=== PATIENT | male | born 1955 | race Caucasian/White ===

== ENCOUNTER 2025-08-03 18:08 | Observation (INO) | payer MEDICARE, OTHER, SELFPAY ==
--- NOTE | ~2025-08-03 | CT_ITS ---
CLINICAL HISTORY: Had TIA affecting speech Exam: Unenhanced CT brain, and contrast-enhanced CTA head and neck with multiplanar reformats and MIP reconstructions. Comparison: None. Findings: Nonenhanced CT brain: CT head without contrast Comparison: None Findings: No intracranial mass, midline shift, hydrocephalus, or acute hemorrhage. No CT evidence of acute ischemia. Visualized paranasal sinuses and mastoid air cells normal. Orbits unremarkable. No skull fracture. CTA head: There is good opacification of the bilateral anterior and posterior intracranial arterial circulations. Left vertebral dominance is present, anatomic variant. No large vessel occlusion or significant intracranial arterial stenoses. No definable truncation of flow. No evidence of aneurysm or vascular malformation there appears to be persistent circulation on the left, anatomic variant. No venous thrombosis or enhancing parenchymal lesions. CTA neck: Unremarkable aortic arch. There is calcific athero sclerosis of the left subclavian artery origin, without hemodynamically significant stenoses. Common carotid arteries are patent bilaterally. Dense calcific athero sclerosis of the mid left common carotid artery appears to result in up to 50% stenoses (for example, 10; 826). There is calcific athero sclerosis of the ICA origins bilaterally. No definable hemodynamically significant stenoses is present on the right. There appears to be stenoses of the proximal left internal carotid artery approaching 50-60% severity (for example, 10; 682). No tandem ICA stenoses appreciated. Vertebral arteries are patent bilaterally. Visualized pulmonary apices are clear. No neck masses or adenopathy. No destructive osseous lesions. Impression: 1. No acute intracranial abnormalities. 2. Calcific athero sclerosis of the mid left common carotid artery appears to result in up to 50% stenoses. 3. Calcific athero sclerosis at left ICA origin appears to result in up to 50-60% stenoses. 4. Otherwise, unremarkable CTA head and neck. This document has been electronically signed by: Geovany Arredondo MD on 08/03/2025 20:29:30
--- NOTE | ~2025-08-03 | MR_ITS ---
CLINICAL HISTORY: tia vs stroke Exam: Nonenhanced MRI brain. Comparison: CT brain 08/03/2025. Findings: There is no cerebral edema or mass effect. White matter signal intensities are maintained. Diffusion weighted imaging reveals no restricted diffusion or MR evidence of acute ischemia. Susceptibility weighted imaging reveals no susceptibility artifact or evidence of intracranial hemorrhage. No sellar or parasellar lesions. Ventricular size and configuration are within normal limits. Cerebral cisterns are preserved. No significant signal abnormality seen within the paranasal sinuses or mastoid air cells. Preserved flow signal voids are present within visualized intracranial vasculature. Impression: 1. No acute intracranial abnormalities. This document has been electronically signed by: Geovany Arredondo MD on 08/04/2025 19:03:21
--- NOTE | 2025-08-03 18:19 | ED.GENADULT ---
HPI - General Adult General Chief complaint: Stroke Stated complaint: ?TIA Time Seen by Provider: 08/03/25 18:19 History of Present Illness ED Provider: Elham HAYES narrative: The patient is a 70-year-old male with a history of atrial fibrillation on apixaban. He says that he was working with the computer today at around 14:00 when he started to feel like he was having trouble finding words. He says that he had a similar episode about 2 weeks ago. He did not seek medical care at that time. He says the episode 2 weeks ago did not last very long, less than 5 minutes.. Today's episode was fairly similar. The patient's was present during both of these episodes. She was not aware of any facial asymmetry or droop or any weakness in the extremities. The patient has otherwise been feeling fine. No fever, sweats, chills. No significant headache. No cough or sputum. No chest pain. No abdominal pain, nausea, vomiting. Related Data Allergies Allergy/AdvReac Type Severity Reaction Status Date / Time No Known Allergies Allergy Verified 08/03/25 18:32 Review of Systems Review of Systems: Yes all other systems are reviewed and are negative [facility] Social History Social History Use of substances other than those prescribed or required for medical reasons: No Advance Directives: No Advance Directives Information Provided: No Do you have a plan to hurt others: No Plan Physical Exam ED Vital Signs: Vital Signs - 24 hr 08/03/25 18:29 08/03/25 20:51 Temperature 97.6 F 97.7 F Pulse Rate 68 60 Respiratory Rate 18 19 Blood Pressure 158/72 H 142/64 H Pulse Oximetry 100 98 Oxygen Delivery Method Room Air Room Air BMI result Body Mass Index 21.0 Const Other: The patient is awake, alert, pleasant and cooperative. He did not appear in distress and he showed no signs of an obvious neurological deficit. HENMT Other: I felt the patient has a somewhat asymmetric face at baseline but I do not feel there was any definite facial droop on either side. Tongue is midline. Mucous membranes moist. Eyes Other: Pupils are round equal, conjunctivae are clear, extraocular movements intact Visual Garzon: normal visual garzon by confrontation Alignment and Position: alignment normal EOM: EOMs intact bilaterally Neck Neck: Yes normal visual inspection, Yes full ROM and Yes no JVD Resp Effort & Inspection: normal respiratory effort Auscultation: clear to auscultation bilaterally Cardio Rate: regular rate Rhythm: regular rhythm Heart sounds: S1 normal heart sound present and S2 normal heart sound present GI Other: Abdomen is soft and nontender Skin Other: The skin is dry and unremarkable Neuro Other: The patient is awake and alert with a normal mental status. Pupils are round equal, extraocular movements are intact, visual garzon are intact to confrontation, the patient is face has a certain asymmetry to it but I do not think there was any droop. The patient has intact strength in his extremities. No cerebellar findings. Sensation is intact. NIH stroke scale is 0. Extrem Other: There is no calf swelling or tenderness. No asymmetry. No peripheral edema. Medications Administered Discontinued Medications Generic Name Dose Route Start Last Admin Trade Name Freq PRN Reason Stop Dose Admin Sodium Chloride 1,000 mls @ 999 mls/hr 08/03/25 19:45 08/03/25 21:32 Ns IV 08/03/25 20:45 Infused .Q1H1M SAMANTHA Infusion Iohexol 100 ml 08/03/25 19:49 08/03/25 19:50 Iohexol 350 Mg/Ml 100 Ml Infus..Btl IV 08/03/25 19:50 70 ml ONCE ONE Administration Medical Decision Making Medical Decision Making MDM Narrative: The patient is a 70-year-old male who was on apixaban because of paroxysmal atrial fibrillation. He describes 2 episodes, 1 last week and another just before arrival, that sound like TIAs. These were characterized primarily by problems with speech. There does not seem to be has been any other deficits during these episodes. The episodes were brief, less than 5 minutes. He arrived by ambulance. I saw him on arrival. He had no ongoing deficits. An EKG shows sinus rhythm. Vital signs are stable. A CT angiogram of the head and neck shows no acute stroke. No critical findings on the vascular portion of the angiogram. Given that this patient has what seems to has been 2 TIAs while on anticoagulation and he has had these 2 episodes in the course of a week I think that hospitalization for further evaluation by neurology would be reasonable. Lab Data 08/03/25 18:52 08/03/25 18:51 Labs: Lab Results 08/03/25 08/03/25 08/03/25 Range/Units 18:51 18:52 20:03 WBC 5.3 (4.8-10.8) X10*3/uL RBC 4.03 L (4.60-5.80) X10*6/uL Hgb 13.1 L (14.0-18.0) g/dl Hct 36.9 L (42.0-52.0) % MCV 91.6 (80.0-98.0) fL MCH 32.5 (27.0-33.0) pg MCHC 35.5 (31.0-36.0) g/dl RDW 11.4 (11.0-16.0) % Plt Count 209 (160-400) X10*3/uL MPV 9.1 L (9.4-12.4) fL Immature Gran % (Auto) 0.4 (0.0-0.4) % Neut % (Auto) 59.4 (45-73) % Lymph % (Auto) 26.6 (20-40) % [place] % (Auto) 10.4 (2-11) % Eos % (Auto) 2.1 (0-4) % Baso % (Auto) 1.1 (0-2) % Lymph # (Auto) 1.4 (1.2-4.9) X10*3/uL [place] # (Auto) 0.6 (0.1-1.2) X10*3/uL Eos # (Auto) 0.1 (0.0-0.4) X10*3/uL Baso # (Auto) 0.1 (0.0-0.2) X10*3/uL Abs Immat Gran (auto) 0.02 (0.00-0.03) X10*3/uL Absolute Neuts (auto) 3.2 (2.0-8.3) x10*3/uL Absolute Nucleated RBC 0.000 (0.0-0.012) X10*3/uL Nucleated RBC % (auto) 0.0 (0.0-0.2) /100WBC Sodium 140 (135-145) mmol/L Potassium 4.3 (3.3-5.1) mmol/L Chloride 108 (96-108) mmol/L Carbon Dioxide 22 (22-29) mmol/L Anion Gap 14 (12-20) BUN 15 (9-16) mg/dL Creatinine 0.90 (0.5-1.4) mg/dL Estim Creat Clear Calc 62.7 Estimated GFR > 60 POC Glucose 81 (60-115) mg/dL Random Glucose 99 (60-115) mg/dL Calcium 9.4 (8.4-10.2) mg/dL Magnesium 2.0 (1.6-2.6) mg/dL Total Bilirubin 0.9 (0.0-1.0) mg/dL Direct Bilirubin 0.4 (0.0-0.5) mg/dL AST 28 (5-37) U/L ALT 25 (0-40) U/L Alkaline Phosphatase 56 (39-117) U/L NT-Pro-B Natriuret Pep 288.5 (<300) pg/mL Total Protein 7.1 (6.5-8.0) g/dL Albumin 4.7 (3.5-5.0) g/dL Discharge Plan Discharge Clinical Impression: Transient ischemic attack Patient Disposition: Home, Self-Care
--- NOTE | 2025-08-03 18:20 | ECG_ITS ---
Test Reason : TIA Blood Pressure : */* mmHG Vent. Rate : 68 BPM Atrial Rate : 68 BPM P-R Int : 154 ms QRS Dur : 88 ms QT Int : 410 ms P-R-T Axes : 7 -16 19 degrees QTcB Int : 435 ms Normal sinus rhythm Normal ECG No previous ECGs available Referred By: Jhoan Lizarraga Electronically Signed By: IRISH JACKSON
[2025-08-03 18:22] VITALS: BP 162/83; PULSE 68; O2SAT 99
[2025-08-03 18:29] VITALS: BP 158/72; PULSE 68; RESP 18; TEMP 36.4; O2SAT 100; BMI 21.0
[2025-08-03 18:57] LABS: MANUAL DIFF FLAG NO
[2025-08-03 18:59] LABS: Hematocrit 36.9 % (42.0-52.0); Hemoglobin 13.1 g/dl (14.0-18.0); Imm Gran Abs Auto 0.02 X10*3/uL (0.00-0.03); Imm Gran Pct Auto 0.4 % (0.0-0.4); Lymphocytes Absolute Auto 1.4 X10*3/uL (1.2-4.9); Mean Corpuscular HGB Conc 35.5 g/dl (31.0-36.0); Mean Corpuscular Hemoglobin 32.5 pg (27.0-33.0); Mean Corpuscular Volume 91.6 fL (80.0-98.0); NRBC Abs Auto 0.000 X10*3/uL (0.0-0.012); NRBC Pct Auto 0.0 /100WBC (0.0-0.2); Platelet Count 209 X10*3/uL (160-400); Red Blood Count 4.03 X10*6/uL (4.60-5.80); White Blood Count 5.3 X10*3/uL (4.8-10.8)
--- OUTSIDE RECORDS SUMMARY | 2025-08-03 19:15 | XMS_ITS | Clinical Summary ---
Author Organization [facility] Address [address] [place] [id number] Phone Care Team Providers Care Sociology Teacher Name Role Phone Fidel Wheatley MD Primary Care Provider + Social History Tobacco Use Types Packs/Day Years Used Date Smoking Tobacco: Never Assessed Education Answer Date Recorded Are you interested in more education? Not on curtis e 12/01/2022 Are you concerned about learning? Not on file 12/01/2022 No 12/01/2022 No 12/01/2022 Digital Access Answer Date Recorded No 12/30/2022 No 12/30/2022 No 12/30/2022 Reliable internet access at home? Not on file 12/30/2022 Device with a working camera? Not on file Sex and Gender Information Value Date Recorded Sex Assigned at Not on file Legal Sex Male 10:20 AM EDT Gender Identity Not on file Sexual Orientation Not on file Plan of Treatment Health Maintenance Due Date Last Done Comments Adult Td,Tdap Booster 1954 LIPID PANEL 1954 DEPRESSION SCREENING 1966 SMOKING Hx and SMOKELESS TOBACCO SCREENING 1967 HEPATITIS C SCREENING 02/13/1972 COLOGUARD 1999 COLONOSCOPY 1999 COLORECTAL CANCER SCREENING 1999 FIT TEST 1999 FOBT 1999 SIGMOIDOSCOPY 1999 VIRTUAL COLONOSCOPY 1999 PNEUMOCOCCAL VACCINES (50+ years) (1 of 1 - PCV) 02/13/2004 ZOSTER VACCINES (1 of 2) 02/13/2004 INFLUENZA VACCINE (#1) 2025 , 08/18/2019, 09/11/2017 COVID-19 VACCINE (3 - 2024-2 6 season) 2025 10/30/2020, 10/09/2020 RSV VACCINE (1 - 1-dose 75+ series) 2029 HEPATITIS A VACCINES Aged Out No long er eligible based on patient's age to complete this topic HIB VACCINES Aged Out No longer eligi ble based on patient's age to complete this topic MENINGOCOCCAL VACCINES (ACWY) Aged Out No longer eligible based on patient's age to complete this topic MENINGOCOCCAL VACCINES (B) Aged Out N o longer eligible based on patient's age to complete this topic Medical Devices Not on file Insurance [place] [facility] [facility] [place] [facility] [facility] [employer] [facility] [facility] [employer] [facility] [employer] [facility] [employer] PPO [employer] [facility] [facility] [employer]PO [facility] [email or web address] PPO Care Teams Sociology Teacher Relationship Specialty Start Date End Date Fidel Wheatley MD [address] [place] [id number] PCP - General Family Medicine 10/30/18 Additional Source Comments The information contained in this document represents components of the legal health record. It is not the complete legal health record.[facility]
[2025-08-03 19:33] LABS: Alanine Aminotransferase 25 U/L (0-40); Albumin Level 4.7 g/dL (3.5-5.0); Alkaline Phosphatase 56 U/L (39-117); Anion Gap 14 (12-20); Aspartate Amino Transferase 28 U/L (5-37); Blood Urea Nitrogen 15 mg/dL (9-16); Calcium 9.4 mg/dL (8.4-10.2); Carbon Dioxide 22 mmol/L (22-29); Chloride 108 mmol/L (96-108); Creatinine Clr Calc Pharmacy 62.7; Estimated Glomerular Filt Rate > 60; Magnesium 2.0 mg/dL (1.6-2.6); Potassium 4.3 mmol/L (3.3-5.1); Sodium 140 mmol/L (135-145); Total Protein 7.1 g/dL (6.5-8.0)
[2025-08-03 19:40] LABS: NT Pro B Type Natriuretic Pept 288.5 pg/mL (<300)
[2025-08-03] MEDS: iohexoL 350 MG/ML 100 ML INFUS..BTL IV (19:50)
--- NOTE | 2025-08-03 20:04 | PC.NURSE ---
Took over care from FIORDALIZA Nettles, pt a&o, swallow evaluation completed, no sign of distress. medicated per oct.
[2025-08-03 20:06] LABS: Glucose, Whole Blood 81 mg/dL (60-115)
[2025-08-03 20:51] VITALS: BP 142/64; PULSE 60; RESP 19; TEMP 36.5; O2SAT 98
--- NOTE | 2025-08-03 21:32 | PC.NURSE ---
pt able to speak in full sentence, able to answer questions appropriate, neuro intact, pt awaiting CT scan results
--- NOTE | 2025-08-03 22:36 | PM.IMHP ---
History of Present Illness Date of Service: 08/03/25 [facility] Social History Use of substances other than those prescribed or required for medical reasons: No Advance Directives: No Advance Directives Information Provided: No Do you have a plan to hurt others: No Plan Meds Allergies Allergy/AdvReac Type Severity Reaction Status Date / Time No Known Allergies Allergy Verified 08/03/25 18:32 Active Medications: Current Medications Acetaminophen (Acetaminophen 325 Mg Tablet) 650 mg PO Q6H PRN PRN Reason: Pain, Mild 1-3,fever,headache Calcium Carbonate (Calcium Carbonate 750 Mg Tab.Chew) 750 mg PO Q4H PRN PRN Reason: Heartburn Magnesium Hydroxide (Milk Of Magnesia 30 Ml Oral.Susp) 30 ml PO DAILY PRN PRN Reason: Constipation Melatonin (Melatonin 3 Mg Tablet) 6 mg PO BEDTIME PRN PRN Reason: Insomnia Ondansetron HCl (Ondansetron Hcl 4 Mg/2 Ml Vial) 4 mg IVPUSH Q8H PRN PRN Reason: Nausea and Vomiting Polyethylene Glycol (Polyethylene Glycol 3350 17 Gm Powd.Pack) 17 gm PO DAILY PRN PRN Reason: Constipation Sodium Chloride (0.9 % Sodium Chloride Flush 3 Ml Syringe) 3 ml IVFLUSH QSHIFT [facility] Physical Exam Vital Signs and Narrative: Vital Signs: Last Vital Signs Temp 97.7 F 08/03/25 20:51 Pulse 60 08/03/25 20:51 Resp 19 08/03/25 20:51 BP 142/64 H 08/03/25 20:51 Pulse Ox 98 08/03/25 20:51 O2 Del Method Room Air 08/03/25 20:51 BMI result Body Mass Index 21.0 Results Labs 08/03/25 18:52 08/03/25 18:51 Labs: Laboratory Results - last 24 hr 08/03/25 08/03/25 08/03/25 18:51 18:52 20:03 MCV 91.6 MCH 32.5 MCHC 35.5 RDW 11.4 Plt Count 209 MPV 9.1 L Immature Gran % (Auto) 0.4 Neut % (Auto) 59.4 Lymph % (Auto) 26.6 [place] % (Auto) 10.4 Eos % (Auto) 2.1 Baso % (Auto) 1.1 Lymph # (Auto) 1.4 [place] # (Auto) 0.6 Eos # (Auto) 0.1 Baso # (Auto) 0.1 Abs Immat Gran (auto) 0.02 Absolute Neuts (auto) 3.2 Absolute Nucleated RBC 0.000 Nucleated RBC % (auto) 0.0 Anion Gap 14 Estim Creat Clear Calc 62.7 Estimated GFR > 60 POC Glucose 81 Random Glucose 99 Calcium 9.4 Magnesium 2.0 Total Bilirubin 0.9 Direct Bilirubin 0.4 AST 28 ALT 25 Alkaline Phosphatase 56 NT-Pro-B Natriuret Pep 288.5 Total Protein 7.1 Albumin 4.7 Quality VTE VTE Risk Level:: Medical - moderate - high VTE Device Contraindication: N/A - Device Ordered VTE Drug Contraindication: N/A - Med Ordered
--- NOTE | 2025-08-03 22:46 | PC.NURSE ---
pt oob bed with a steady gait, jina
[2025-08-03 23:54] VITALS: BP 158/74; PULSE 69; RESP 20; TEMP 36.8; O2SAT 96
--- NOTE | 2025-08-03 23:54 | PM.IMHP ---
History of Present Illness Date of Service: 08/03/25 Attending physician on admission: Radha Chan Chief Complaint: word finding difficulties Patient is a 70-year-old male with a past medical history significant for paroxysmal AFib on Eliquis and atenolol, GERD, hypertension and HLD, who presented to the ED due to anomic aphasia beginning around 14:00 today. The patient reports that he has had a similar episode about 2 weeks ago which lasted about 5 minutes. His symptoms have resolved however he does experience a headache which began during the episode today. He denies any weakness or additional symptoms including blurry vision, dizziness, gait instability. His headache mild. He reports he has compliant with his Eliquis and atenolol for AFib and has not gone into AFib for many years since starting the atenolol. He does take atorvastatin and lisinopril as well. He denies smoking. Review of Systems Constitutional: Constitutional: Denies body ache(s), Denies chills, Denies fatigue, Denies fever(s) and Reports headache(s) Eyes: Eyes: Denies change in vision ENT: Reports headache(s), Denies nasal congestion and Denies sore throat Cardiovascular: Cardiovascular: Denies chest pain, Denies rapid heart rate, Denies leg edema, Denies lightheadedness and Denies dyspnea Respiratory: Respiratory: Denies chest congestion, Denies cough, Denies dyspnea and Denies wheezing Gastrointestinal: Gastrointestinal: Denies abdominal pain, Denies nausea and Denies vomiting Genitourinary: Genitourinary: Denies dysuria, Denies urinary frequency and Denies urinary urgency Musculoskeletal: Musculoskeletal: Denies back pain and Denies myalgias Integumentary/Breasts: Skin/Breast: Denies rash Neurologic: Denies confusion and Reports headache(s) Psychiatric: Psychiatric: Denies confusion Endocrine: Endocrine: Denies fatigue Hematologic/Lymphatic: Hematologic/Lymphatic: Denies easy bleeding Allergic/Immunologic: Allergic/Immunologic: Denies wheezing [facility] Medical History Paroxysmal A-fib Functional capacity: independent ambulation Social History Use of substances other than those prescribed or required for medical reasons: No Advance Directives: No Advance Directives Information Provided: No Do you have a plan to hurt others: No Plan Narrative: no smoking, or drug use. dr[place] 24 oz liqour nightly Meds Allergies Allergy/AdvReac Type Severity Reaction Status Date / Time No Known Allergies Allergy Verified 08/03/25 18:32 Active Medications: Current Medications Acetaminophen (Acetaminophen 325 Mg Tablet) 650 mg PO Q6H PRN PRN Reason: Pain, Mild 1-3,fever,headache Calcium Carbonate (Calcium Carbonate 750 Mg Tab.Chew) 750 mg PO Q4H PRN PRN Reason: Heartburn Magnesium Hydroxide (Milk Of Magnesia 30 Ml Oral.Susp) 30 ml PO DAILY PRN PRN Reason: Constipation Melatonin (Melatonin 3 Mg Tablet) 6 mg PO BEDTIME PRN PRN Reason: Insomnia Ondansetron HCl (Ondansetron Hcl 4 Mg/2 Ml Vial) 4 mg IVPUSH Q8H PRN PRN Reason: Nausea and Vomiting Polyethylene Glycol (Polyethylene Glycol 3350 17 Gm Powd.Pack) 17 gm PO DAILY PRN PRN Reason: Constipation Sodium Chloride (0.9 % Sodium Chloride Flush 3 Ml Syringe) 3 ml IVFLUSH [facility] Medications ?Medication ?Instructions ?Recorded ?Confirmed ?Last Taken ?Type apixaban 5 mg tablet (Eliquis) 5 mg PO BID 08/03/25 08/03/25 08/03/25 08:00 History atenolol 50 mg tablet 50 mg PO DAILY 08/03/25 08/03/25 08/03/25 08:00 History Physical Exam Vital Signs and Narrative: Vital Signs: Last Vital Signs Temp 97.7 F 08/03/25 20:51 Pulse 60 08/03/25 20:51 Resp 19 08/03/25 20:51 BP 142/64 H 08/03/25 20:51 Pulse Ox 98 08/03/25 20:51 O2 Del Method Room Air 08/03/25 20:51 BMI result Body Mass Index 21.0 General: AOx3, no acute distress Resp: CTA bilaterally CVS: S1, S2, RRR GI: +BS, NT, no distention Skin: Warm, dry Neuro: Cranial nerves II-XII grossly intact bilaterally. Motor grossly intact bilaterally. strength and sensation intact and equal bilaterally. no speech difficulties Extremities: No edema Psych: Appropriate affect Const: General: No confusion Orientation/consciousness: No confusion Neuro: General: No confusion Results Labs 08/03/25 18:52 08/03/25 18:51 Labs: Laboratory Results - last 24 hr 08/03/25 08/03/25 08/03/25 18:51 18:52 20:03 MCV 91.6 MCH 32.5 MCHC 35.5 RDW 11.4 Plt Count 209 MPV 9.1 L Immature Gran % (Auto) 0.4 Neut % (Auto) 59.4 Lymph % (Auto) 26.6 [place] % (Auto) 10.4 Eos % (Auto) 2.1 Baso % (Auto) 1.1 Lymph # (Auto) 1.4 [place] # (Auto) 0.6 Eos # (Auto) 0.1 Baso # (Auto) 0.1 Abs Immat Gran (auto) 0.02 Absolute Neuts (auto) 3.2 Absolute Nucleated RBC 0.000 Nucleated RBC % (auto) 0.0 Anion Gap 14 Estim Creat Clear Calc 62.7 Estimated GFR > 60 POC Glucose 81 Random Glucose 99 Calcium 9.4 Magnesium 2.0 Total Bilirubin 0.9 Direct Bilirubin 0.4 AST 28 ALT 25 Alkaline Phosphatase 56 NT-Pro-B Natriuret Pep 288.5 Total Protein 7.1 Albumin 4.7 Assessment and Plan (1) Transient ischemic attack: Status: Acute Plan Patient is a 70-year-old male with a past medical history significant for paroxysmal AFib on Eliquis and atenolol, GERD, hypertension and HLD, who presented to the ED due to anomic aphasia beginning around 14:00 today. sx have since resolved. TIA, anomic aphasia resolved - echo - tele - neurochecks - neurology consult, appreciate input on MRI - lipid panel - allow permissive HTN - ASA paroxysmal a fib - atenolol and eliquis HTN - lisinopril HLD - statin etoh abuse - CIWA med rec pending full code VTE prophy: eliquis Patient with anomic aphasia, resolved, likely TIA, requiring admission for observation for neurology consultation and monitoring. Quality Stroke Does the patient have a stroke diagnosis?: No VTE Prior VTE?: No VTE Risk Level:: Medical - moderate - high VTE Device Contraindication: N/A - Device Ordered VTE Drug Contraindication: N/A - Med Ordered
[2025-08-04] VITALS (7 sets, daily range): BP systolic 126–165; BP diastolic 57–88; PULSE 58–71; RESP 16–18; TEMP 36.4–36.8; O2SAT 94–100
--- NOTE | 2025-08-04 | EEG_ITS ---
History: H/O paroxysmal A-fib- pt had two events of aphasia- lasting few minutes in duration- pt recalls events- no LOC, incontinence, pt has not been sick- MRI of brain on 08/04/25 showed no acute intracranial abnormalities- CT/ CTA 08/03/30 showed no acute intracranial abnormalities, calcific athero sclerosis of the mid left common carotid artery appears to result in up to 50% stenoses, calcific athero sclerosis at left ICA origin appears to result in up to 50-60% stenoses- otherwise, unremarkable CTA head and neck. Medications: Acetaminophen, Apixaban, Calcium Carbonate, Magnesium Hydroxide, Melatonin, Ondansetron HCl, Polyethylene Glycol Technical Description Photic Stimulation: completed Hyperventilation: omitted Behavioral State: pleasant- no symptoms during this study State of Consciousness: awake with periods of sleep Skull Defect:no Sedation: no Handedness: Right Duration:32 mins 03 secs Last meal: 08/05/25 8 am Time / Date of last Symptom: 08/03/25 Description: This is a 16 channel EEG with an EKG lead. Patient is reported awake with periods of sleep. Background EEG rhythm is in theta to delta range with slight asymmetry of slightly lower amplitude in left hemispheric lead than right. No definite sharp waves or spikes were noted. Photic stimulation did not produce any significant abnormality. Hyperventilation was not performed. Cardiac lead did not reveal any significant abnormality. Impression: No obvious epileptic tendency noted on this EEG. MTDD
--- NOTE | 2025-08-04 07:00 | CA_ITS ---
Transthoracic Echocardiogram Patient (Last, First, Middle): Kun Rizo, Gender: Kaitlin Date of : 1955 Age: 70 Procedure Date: 08/04/2025 Procedure Type: Transthoracic Echocardiogram Location: [facility] [place] Height: 167.64 cm Weight: 58.97 kg BSA: 1.67 m2 Heart Rate: 73 bpm BP: 158 / 74 mmHg Lead Java Software Engineer: TO Referring MD: Isabel Mario PA-C Symptoms: ?TIA Study Quality: Adequate ECG Rhythm: Sinus Conclusions: - The left ventricular systolic function is normal. The calculated ejection fraction is 60% by biplane method. - The mid inferoseptal segment is hypokinetic. - No obvious valvular pathology seen on this study. Findings Left Ventricle Normal left ventricular cavity size. There is normal left ventricular wall thickness. The left ventricular systolic function is normal. The calculated ejection fraction is 60% by biplane method. There is no evidence of regional wall motion abnormalities. Diastolic function is normal for age. Wall Motion Rest Echo Findings The mid inferoseptal segment is hypokinetic. Right Ventricle Mildly increased right ventricular cavity size. There is normal right ventricular systolic function. Atria Both atria are normal in size. Aortic Valve There is a normal trileaflet aortic valve. There is no aortic valve stenosis. There is no aortic valve regurgitation. Mitral Valve The mitral valve appears normal. There is no mitral valve regurgitation. There is no mitral valve stenosis. Pulmonic Valve The pulmonic valve is likely normal. Tricuspid Valve There is trace tricuspid valve regurgitation. There is no evidence of pulmonary hypertension. Great Vessels The asc aorta is normal in size. Venous The inferior vena cava is normal in size and collapses greater than 50% with inspiration. Pericardium/Pleural There is no evidence of pericardial effusion. Prior Study Comparison No prior study available for comparison. Recommendations, Care & Conclusions No obvious valvular pathology seen on this study. Measurements 2D Linear Measurements IVSd: 0.78 0.6-0.9/0.6-1.0 cm LVIDd: 4.53 3.9-5.3/4.2-5.9 cm LVIDd Index: 2.71 2.4-3.2/2.2-3.1 cm/m2 LVIDs: 2.80 2.0-3.6 cm LVPWd: 0.75 0.7-1.1 cm LA Diam: 2.70 2.7-3.8/3.0-4.0 cm LAIDs Index: 1.62 1.5-2.3 cm/m2 LV Mass: 134.77 67-162/88-224 g LV Mass Index: 80.70 43-95/49-115 g/m2 LVOT Diam: 2.20 3.0+(-)1.3 cm 2D Systolic Function EF 4C: 55.70 >55% EF 2C: 64.00 >55% EF BiP: 60.10 >55% Mitral Valve MV Pk E: 0.42 MV PK A: 0.81 MV Decel Time: 182.00 E/A: 0.50 E'Lateral: 12.00 E'Medial: 5.55 E/E' Med: 7.60 E/E' Lat: 3.50 PHT: 53.00 MVA PHT: 4.15 Decel Baca: 2.33 Aortic Valve AoV Pk Matty: 1.45 AoV Mn Matty: 0.99 AoV VTI: 0.27 AoV Pk Grad: 8.00 Aov Mn Grad: 4.00 NICKY Cont.VTI: 2.58 LVOT LVOT Pk Matty: 0.93 LVOT Mn Matty: 0.58 LVOT VTI: 0.18 LVOT Pk Grad: 3.00 LVOT Mn Grad: 2.00 LVOT Diam: 2.20 LVOT Area: 3.80 Diastolic Function MV Pk E: 0.42 MV Pk A: 0.81 E/A: 0.50 E'Medial: 5.55 E/E' Med: 7.60 E' Laterial: 12.00 E/E' Lat: 3.50 Right Ventricle TAPSE (mm): 27.30 TVS' Matty: 13.90 Tricuspid Valve TR Pk Matty: 2.04 TR Pk Grad: 17.00 RA Press: 3.00 RVSP: 20.00 Great Vessels Aorta Sinus of Valsalva: 3.38 2.0-3.5 cm Ao Asc: 3.50 2.1-3.4 cm Updated in Other Vendor System with Status of Final Ward Lee MD electronically signed on 08/04/2025 4:49:26 PM with status of Final
[2025-08-04 07:08] LABS: Hematocrit 35.2 % (42.0-52.0); Hemoglobin 12.5 g/dl (14.0-18.0); Mean Corpuscular HGB Conc 35.5 g/dl (31.0-36.0); Mean Corpuscular Hemoglobin 32.6 pg (27.0-33.0); Mean Corpuscular Volume 91.9 fL (80.0-98.0); NRBC Abs Auto 0.000 X10*3/uL (0.0-0.012); NRBC Pct Auto 0.0 /100WBC (0.0-0.2); Platelet Count 201 X10*3/uL (160-400); Red Blood Count 3.83 X10*6/uL (4.60-5.80); White Blood Count 5.1 X10*3/uL (4.8-10.8)
[2025-08-04 07:34] LABS: Anion Gap 13 (12-20); Blood Urea Nitrogen 10 mg/dL (9-16); Calcium 8.9 mg/dL (8.4-10.2); Carbon Dioxide 21 mmol/L (22-29); Chloride 111 mmol/L (96-108); Creatinine Clr Calc Pharmacy 68.0; Estimated Glomerular Filt Rate > 60; Potassium 3.7 mmol/L (3.3-5.1); Sodium 141 mmol/L (135-145)
--- NOTE | 2025-08-04 08:16 | HO.NURTONUR ---
Pt is a 70yo M who came to ED c/o expressive aphasia that started 1400 yesterday. Similar episode 2 weeks ago. Pt with hx of afib w blood thinners, GERD, HTN. Pt to be admitted for TIA workup. Pt is a/ox4. Steady gait. Swallow intact. C/o mild headache. Cardiac diet. 20g LAC. VSS.
--- NOTE | 2025-08-04 08:22 | PHA.MEDREC ---
Addendum entered by Nadira Miranda RPh 08/04/25 09:45: MED REC REVIEWED BY [facility] Original Note: Pharmacy Consult ? Medication Reconciliation Pharmacy reviewed med rec done by nursing; nurse had confirmed Eliquis 5mg BID and Atenolol 50mg tabs once daily. Spoke with pt and he confirmed his medications. Pt confirmed he is taking Eliquis 5mg BID, Atenolol 50mg BID, pt also taking Atorvastatin 40mg 1 QD, Lisinopril 10mg 1 QD, Metronidazole cream as needed for rosacea, Vitamin D3 1000un 1 QD and Nexium 20mg 1 QD; updated med rec with what pt confirmed with me.
--- NOTE | 2025-08-04 09:54 | P.PNIM_ITS ---
Subjective Subjective Date of Service: 08/04/25 Review of Systems F/U TIA No headache Sipping water, decrease appetite hospital related Review of Systems: Yes all other systems are reviewed and are negative Physical Exam 2 Vital Signs: Vital Signs: Last Vital Signs Temp 98.2 F 08/03/25 23:54 Pulse 69 08/03/25 23:54 Resp 20 08/03/25 23:54 BP 158/74 H 08/03/25 23:54 Pulse Ox 96 08/03/25 23:54 O2 Del Method Room Air 08/03/25 23:54 BMI result Body Mass Index 21.0 Appearing in no acute distress head is normocephalic atraumatic eyes pupils are PERRLA sclera is anicteric mouth throat mucous membranes are intact and moist neck is supple no lymphadenopathy, no JVD noted lung sounds are clear to auscultation heart regular rate rhythm, clear S1, S2 positive bowel sounds, abdomen is soft, nontender neuro patient is alert x3, no focal deficits Objective Data Active Medications Acetaminophen (Acetaminophen 325 Mg Tablet) 650 mg PO Q6H PRN PRN Reason: Pain, Mild 1-3,fever,headache Apixaban (Apixaban 5 Mg Tablet) 5 mg PO BID SAMANTHA Calcium Carbonate (Calcium Carbonate 750 Mg Tab.Chew) 750 mg PO Q4H PRN PRN Reason: Heartburn Magnesium Hydroxide (Milk Of Magnesia 30 Ml Oral.Susp) 30 ml PO DAILY PRN PRN Reason: Constipation Melatonin (Melatonin 3 Mg Tablet) 6 mg PO BEDTIME PRN PRN Reason: Insomnia Ondansetron HCl (Ondansetron Hcl 4 Mg/2 Ml Vial) 4 mg IVPUSH Q8H PRN PRN Reason: Nausea and Vomiting Polyethylene Glycol (Polyethylene Glycol 3350 17 Gm Powd.Pack) 17 gm PO DAILY PRN PRN Reason: Constipation Sodium Chloride (0.9 % Sodium Chloride Flush 3 Ml Syringe) 3 ml IVFLUSH QSHIFT [facility] Labs 08/04/25 05:02 08/04/25 05:02 Labs: Laboratory Results - last 24 hr 08/03/25 08/03/25 08/03/25 18:51 18:52 20:03 MCV 91.6 MCH 32.5 MCHC 35.5 RDW 11.4 Plt Count 209 MPV 9.1 L Immature Gran % (Auto) 0.4 Neut % (Auto) 59.4 Lymph % (Auto) 26.6 [place] % (Auto) 10.4 Eos % (Auto) 2.1 Baso % (Auto) 1.1 Lymph # (Auto) 1.4 [place] # (Auto) 0.6 Eos # (Auto) 0.1 Baso # (Auto) 0.1 Abs Immat Gran (auto) 0.02 Absolute Neuts (auto) 3.2 Absolute Nucleated RBC 0.000 Nucleated RBC % (auto) 0.0 Anion Gap 14 Estim Creat Clear Calc 62.7 Estimated GFR > 60 POC Glucose 81 Random Glucose 99 Calcium 9.4 Magnesium 2.0 Total Bilirubin 0.9 Direct Bilirubin 0.4 AST 28 ALT 25 Alkaline Phosphatase 56 NT-Pro-B Natriuret Pep 288.5 Total Protein 7.1 Albumin 4.7 08/04/25 05:02 MCV 91.9 MCH 32.6 MCHC 35.5 RDW 11.7 Plt Count 201 MPV 9.6 Immature Gran % (Auto) Neut % (Auto) Lymph % (Auto) [place] % (Auto) Eos % (Auto) Baso % (Auto) Lymph # (Auto) [place] # (Auto) Eos # (Auto) Baso # (Auto) Abs Immat Gran (auto) Absolute Neuts (auto) Absolute Nucleated RBC 0.000 Nucleated RBC % (auto) 0.0 Anion Gap 13 Estim Creat Clear Calc 68.0 Estimated GFR > 60 POC Glucose Random Glucose 95 Calcium 8.9 Magnesium Total Bilirubin Direct Bilirubin AST ALT Alkaline Phosphatase NT-Pro-B Natriuret Pep Total Protein Albumin Assessment and Plan (1) Paroxysmal A-fib: Status: Acute (2) Transient ischemic attack: Status: Acute Plan Plan Patient is a 70-year-old male with a past medical history significant for paroxysmal AFib on Eliquis and atenolol, GERD, hypertension and HLD, who presented to the ED due to anomic aphasia beginning around 14:00 today. sx have since resolved. TIA, anomic aphasia resolved CTA head and neck unremarkable Cardiology consult appreciate input on echo Monitor on tele neurochecks Q4H neurology consult, appreciate input on MRI lipid panel allow permissive HTN ASA paroxysmal a fib Continue home atenolol and eliquis HTN Continue home lisinopril HLD Continue home statin etoh abuse CIWA Code Status: full code VTE PPX: Eliquis Patient with anomic aphasia, resolved, likely TIA, requiring admission for observation for neurology consultation and monitoring. Quality Stroke Does the patient have a stroke diagnosis?: No VTE Prior VTE?: No VTE Risk Level:: Medical - moderate - high VTE Device Contraindication: N/A - Device Ordered VTE Drug Contraindication: N/A - Med Ordered
--- NOTE | 2025-08-04 11:32 | MHC.CM.PN ---
ESPERANZA was addressed with Patient. Patient lives in a house with his /HCP/Renetta who will transport at dc. Home/self care is Patient's goal and CM has initiated and will follow for dc planning. PCP is Dr. Wheatley.
--- NOTE | 2025-08-04 13:10 | PM.NEUROCN ---
History of Present Illness Data of Consult Service Date: 08/04/25 Primary Care Provider: Unknown Physician HPI Reason for consult: Aphasia 70 years old man who has been drinking alcohol on regular basis about 24 oz of beer every day came to hospital with 2 similar episodes. The 1st 1 happened couple of weeks ago and the other 1 today. Motor times he tried to speak and could not speak. He said the gibberish was coming out. Each episode lasted for few minutes and he remembered having the episode. There was no associated headache or any other symptom. No chest pain shortness of breath palpitation cold or flu-like illness or change in personality. Review of Systems Constitutional: Constitutional: Reports as per [facility] Past Medical History Medical History Paroxysmal A-fib Social History Social History Household Members: Spouse Housing: House Do you presently have visiting nurse or other home services: No Patient Tobacco Use Status: Never used Tobacco service: No Meds Allergies Allergy/AdvReac Type Severity Reaction Status Date / Time No Known Allergies Allergy Verified 08/03/25 18:32 Active Medications: Current Medications Acetaminophen (Acetaminophen 325 Mg Tablet) 650 mg PO Q6H PRN PRN Reason: Pain, Mild 1-3,fever,headache Apixaban (Apixaban 5 Mg Tablet) 5 mg PO BID SAMANTHA Calcium Carbonate (Calcium Carbonate 750 Mg Tab.Chew) 750 mg PO Q4H PRN PRN Reason: Heartburn Magnesium Hydroxide (Milk Of Magnesia 30 Ml Oral.Susp) 30 ml PO DAILY PRN PRN Reason: Constipation Melatonin (Melatonin 3 Mg Tablet) 6 mg PO BEDTIME PRN PRN Reason: Insomnia Ondansetron HCl (Ondansetron Hcl 4 Mg/2 Ml Vial) 4 mg IVPUSH Q8H PRN PRN Reason: Nausea and Vomiting Polyethylene Glycol (Polyethylene Glycol 3350 17 Gm Powd.Pack) 17 gm PO DAILY PRN PRN Reason: Constipation Sodium Chloride (0.9 % Sodium Chloride Flush 3 Ml Syringe) 3 ml IVFLUSH QSHIFT [facility] Home Medications ?Medication ?Instructions ?Recorded ?Confirmed ?Last Taken ?Type apixaban 5 mg tablet (Eliquis) 5 mg PO BID 08/03/25 08/04/25 08/03/25 History atenolol 50 mg tablet 50 mg PO BID 08/03/25 08/04/25 08/03/25 History atorvastatin 40 mg tablet 40 mg PO DAILY 08/04/25 08/04/25 08/03/25 History cholecalciferol (vitamin D3) 25 25 mcg PO DAILY 08/04/25 08/04/25 08/03/25 History mcg (1,000 unit) tablet (Vitamin D3) esomeprazole magnesium 20 mg 20 mg PO DAILY@0630 08/04/25 08/04/25 08/03/25 History capsule,delayed release (Nexium) lisinopril 10 mg tablet 10 mg PO DAILY 08/04/25 08/04/25 08/03/25 History metronidazole 0.75 % topical cream 1 appl topical BID PRN Rosacea 08/04/25 08/04/25 Unknown History Physical Exam Vital Signs: Vital Signs: Last Vital Signs Temp 98.3 F 08/04/25 11:28 Pulse 71 08/04/25 11:28 Resp 16 08/04/25 11:28 BP 152/84 H 08/04/25 11:28 Pulse Ox 97 08/04/25 11:28 O2 Del Method Room Air 08/04/25 11:28 BMI result Body Mass Index 21.0 Neuro: Other: Mental Status: Alert and oriented to person, place, and time. Normal attention. Normal spontaneous speech, fluency, and comprehension. No obvious issues with mood and memory. Affect is appropriate. Cranial Nerves: CN II: Visual garzon full to confrontation, visual acuity intact. CN III, IV, : Pupils equal, round, reactive to light and accommodation. Extraocular movements are normal. CN V: Facial sensation is normal. CN VII: Facial movements symmetrical. CN VIII: Hearing intact to bedside conversation is normal. CN IX, X: Palate elevates symmetrically. CN XI: Shoulder shrug and head turn symmetrical. CN XII: Tongue midline without atrophy or fasciculations. Motor: Bulk and tone normal in all extremities. No significant muscle weakness in arms and legs. No drift. Reflexes: Deep tendon reflexes 2+ and symmetric. Plantar response down-going bilaterally. Coordination: [id number] and jheh-[id number] testing normal. No dysmetria. Gait and Station: No obvious gait abnormality. No ataxia or instability. Sensory: Intact to light touch, pinprick, and vibration. Romberg is negative. Extrapyramidal: Full facial expressions and blinking. No rigidity. Movements are appropriate with no tremor or abnormality. Speech: Normal; no dysarthria or tremor. Results Labs 08/04/25 05:02 08/04/25 05:02 Labs: Short CBC 08/03/25 08/04/25 Range/Units 18:52 05:02 WBC 5.3 5.1 (4.8-10.8) X10*3/uL Hgb 13.1 L 12.5 L (14.0-18.0) g/dl Hct 36.9 L 35.2 L (42.0-52.0) % Plt Count 209 201 (160-400) X10*3/uL BMP 08/03/25 08/04/25 18:51 05:02 Sodium 140 141 Potassium 4.3 3.7 Chloride 108 111 H Carbon Dioxide 22 21 L BUN 15 10 Creatinine 0.90 0.83 Calcium 9.4 8.9 Liver Function 08/03/25 Range/Units 18:51 Total Bilirubin 0.9 (0.0-1.0) mg/dL Direct Bilirubin 0.4 (0.0-0.5) mg/dL AST 28 (5-37) U/L ALT 25 (0-40) U/L Alkaline Phosphatase 56 (39-117) U/L Albumin 4.7 (3.5-5.0) g/dL Nonenhanced CT brain: CT head without contrast Comparison: None Findings: No intracranial mass, midline shift, hydrocephalus, or acute hemorrhage. No CT evidence of acute ischemia. Visualized paranasal sinuses and mastoid air cells normal. Orbits unremarkable. No skull fracture. CTA head: There is good opacification of the bilateral anterior and posterior intracranial arterial circulations. Left vertebral dominance is present, anatomic variant. No large vessel occlusion or significant intracranial arterial stenoses. No definable truncation of flow. No evidence of aneurysm or vascular malformation there appears to be persistent circulation on the left, anatomic variant. No venous thrombosis or enhancing parenchymal lesions. CTA neck: Unremarkable aortic arch. There is calcific athero sclerosis of the left subclavian artery origin, without hemodynamically significant stenoses. Common carotid arteries are patent bilaterally. Dense calcific athero sclerosis of the mid left common carotid artery appears to result in up to 50% stenoses (for example, 10; 826). There is calcific athero sclerosis of the ICA origins bilaterally. No definable hemodynamically significant stenoses is present on the right. There appears to be stenoses of the proximal left internal carotid artery approaching 50-60% severity (for example, 10; 682). No tandem ICA stenoses appreciated. Vertebral arteries are patent bilaterally. Visualized pulmonary apices are clear. No neck masses or adenopathy. No destructive osseous lesions. Impression: 1. No acute intracranial abnormalities. 2. Calcific athero sclerosis of the mid left common carotid artery appears to result in up to 50% stenoses. 3. Calcific athero sclerosis at left ICA origin appears to result in up to 50-60% stenoses. 4. Otherwise, unremarkable CTA head and neck. Assessment and Plan (1) Aphasia: Status: Acute 70 years old man with 2 similar episodes affecting his ability to talk lasting for few minutes. Vascular disease or transient ischemic attack is 1 possibility. Seizure disorder is another possibility. My recommendation is to obtain an EEG and noncontrast MRI of brain. He is advised to stopped drinking alcohol. Otherwise, continue baby aspirin daily Procedures Date of Service Date of Service: 08/04/25
[2025-08-04] MEDS: 0.9 % Sodium Chloride Flush 3 ML SYRINGE IVFLUSH (20:05)
[2025-08-05 02:59] VITALS: BP 112/64; PULSE 57; RESP 18; TEMP 36.8; O2SAT 97
[2025-08-05 07:31] LABS: Cholesterol 102 mg/dL (<200); HDL Cholesterol 48 mg/dL (>40); Triglycerides 58 mg/dL (<150)
[2025-08-05 07:33] VITALS: BP 144/80; PULSE 63; RESP 16; TEMP 36.3; O2SAT 99
[2025-08-05] MEDS: Aspirin Enteric Coated 81 MG TABLET.DR PO (08:28)
[2025-08-05] MEDS: 0.9 % Sodium Chloride Flush 3 ML SYRINGE IVFLUSH (08:30)
[2025-08-05 12:00] VITALS: BP 145/63; PULSE 63; RESP 16; O2SAT 99
--- NOTE | 2025-08-05 12:54 | P.DS_ITS ---
DS: Providers Provider Date of admission: 08/03/25 22:24 Date of discharge: 08/05/25 Primary care physician: Fidel Wheatley MD Consults: 08/03/25 22:26 Consult to Neurology Routine Consulting Provider: [facility] Reason for consultation: TIA DS: Diagnosis Discharge Diagnosis (1) Aphasia: Status: Acute DS: Summary Hospital Course Hospital Course: Admission note HPI Patient is a 70-year-old male with a past medical history significant for paroxysmal AFib on Eliquis and atenolol, GERD, hypertension and HLD, who presented to the ED due to anomic aphasia beginning around 14:00 today. The patient reports that he has had a similar episode about 2 weeks ago which lasted about 5 minutes. His symptoms have resolved however he does experience a headache which began during the episode today. He denies any weakness or additional symptoms including blurry vision, dizziness, gait instability. His headache mild. He reports he has compliant with his Eliquis and atenolol for AFib and has not gone into AFib for many years since starting the atenolol. He does take atorvastatin and lisinopril as well. He denies smoking. Hospital course The patient was admitted for observation as CTA head and neck unremarkable , normal neurochecks Brain MRI was negative for any acute findings. Evaluated by Neurology team who recommended baby ASA and EEG which was done showing no evidence of seizure activity. Discussed with neurology who recommended to continue Atorvastatin and Eliquis with addition of ASA everyother day a week. Discharge plan Continue home medications Follow with neurology as needed Come back to ED for any recurrence of symptoms Time Attestation Discharge Coordination Time (in mins): 42 Quality: Safe Use of Opioids Does Pt have an Active Cancer Diagnosis on the Problem List?: No Quality: Stroke Does the patient have a stroke diagnosis?: No Physical Exam Exam: Exam: Constitutional : Awake, interactive, not in distress Neck : Normal inspection, Supple Cardiovascular : RRR, no JVP, no lower extremity edema Respiratory : good bilateral air entry, no crackles, wheezes or rhonchi Gastrointestinal: soft, lax, Normal bowel sounds, Non tender Skin : Warm, Dry Neurological : Alert & oriented x3, No focal deficit , CN 2-12 within normal Vital Signs: Vital Signs: Last Vital Signs Temp 97.3 F 08/05/25 07:33 Pulse 63 08/05/25 12:00 Resp 16 08/05/25 12:00 BP 145/63 H 08/05/25 12:00 Pulse Ox 99 08/05/25 12:00 O2 Del Method Room Air 08/05/25 07:33 BMI result Body Mass Index 21.0 DS: Data Data Completed and Pending Labs on day of discharge: Laboratory Results - last 24 hr 08/05/25 06:30 Hold Purple Top SEE NOTE Triglycerides 58 Cholesterol 102 LDL Cholesterol, Calc 43 HDL Cholesterol 48 Imaging MRI - head: My impression: Impression: 1. No acute intracranial abnormalities. Discharge Plan Discharge Anticipated Discharge Date/Time: 08/05/25 12:51 Patient Disposition: Home, Self-Care Discharge Diagnosis: TIA Referrals: Fidel Wheatley MD [Primary Care Provider, Internal Medicine] - 1 Week Discharge Medications: New aspirin 81 mg Tablet,Delayed Release (Dr/Ec) 81 mg PO Q OTHER DAY Qty: 60 0RF Continued atenolol 50 mg Tablet 50 mg PO BID Eliquis 5 mg Tablet 5 mg PO BID atorvastatin 40 mg tablet 40 mg PO DAILY lisinopril 10 mg tablet 10 mg PO DAILY metronidazole 0.75 % cream 1 appl topical BID PRN (Reason: Rosacea) esomeprazole magnesium [Nexium] 20 mg Capsule,Delayed Release(Dr/Ec) 20 mg PO DAILY@0630 cholecalciferol (vitamin D3) [Vitamin D3] 25 mcg (1,000 unit) Tablet 25 mcg PO DAILY Discharge Orders: Discharge Order (Routine); Ordered 08/05/25 Ordered By: Reji Duron Diet: Advance to usual diet Activity on Discharge: As tolerated Stand Alone Forms: Patient Portal Discharge page Print Language: Chilean Care Plan Goals: Secondary prevention Health Concerns: Aphasia; Transient ischemic attack vs seizure Plan of Treatment: Continue home medications Start baby Aspirin every otherday Come back to ED for any recurrence of symptoms Assessment: as above
--- NOTE | 2025-08-05 14:51 | MHC.CM.PN ---
Patient is medically cleared for dc to home today, self care.
== END 2025-08-05 15:15 | disposition home or self-care (01) ==
LOC: HO.ED 22:12 → HO.EDOVER 22:45 → HO.IMC 08-04 07:31
PROVIDERS: Nurse Practitioner Acute Care; Physician Assistant; Admitting Provider Family Medicine; Emergency Provider Emergency Medicine; PCP Family Medicine; Visit Provider Student in an Organized Health Care Education/Training Program
DX: G45.9 Transient cerebral ischemic attack, unspecified (principal); I48.0 Paroxysmal atrial fibrillation; R47.01 Aphasia; R51.9 Headache, unspecified; I10 Essential (primary) hypertension; E78.5 Hyperlipidemia, unspecified; K21.9 Gastro-esophageal reflux disease without esophagitis; Z79.01 Long term (current) use of anticoagulants; Z79.899 Other long term (current) drug therapy
CPT/HCPCS: 36415; 70496; 70498; 70551; 80048; 80061; 80076; 82947; 83735; 83880; 85025; 85027; 93005; 93306; 95819; 96360; 96361; 97161; 97165; 99222; 99285; Q9957; Q9967

== ENCOUNTER → 2025-08-03 18:20 | Outpatient (BNV) | payer MEDICARE, OTHER, SELFPAY | PROVIDERS: Admitting Provider Family Medicine; Emergency Provider Emergency Medicine; Visit Provider Internal Medicine | DX: G45.9 Transient cerebral ischemic attack, unspecified (principal) | CPT/HCPCS: 93010 ==

== ENCOUNTER 2025-08-03 22:24 | Outpatient (BNV) | payer MEDICARE, OTHER, SELFPAY | END 2025-08-04 07:00 | PROVIDERS: Admitting Provider Family Medicine; Emergency Provider Emergency Medicine; Visit Provider Internal Medicine | DX: I51.89 Other ill-defined heart diseases (principal) | CPT/HCPCS: 93306 ==

== ENCOUNTER 2025-08-03 22:24 | Outpatient (BNV) | payer MEDICARE, OTHER, SELFPAY | END 2025-08-04 10:00 | PROVIDERS: Admitting Provider Family Medicine; Emergency Provider Emergency Medicine; PCP Family Medicine; Visit Provider Psychiatry & Neurology Neurology | DX: R56.9 Unspecified convulsions (principal) | CPT/HCPCS: 95819 ==

== ENCOUNTER → 2025-08-03 22:24 | Outpatient (BNV) | payer MEDICARE, OTHER, SELFPAY | PROVIDERS: Admitting Provider Family Medicine; Emergency Provider Emergency Medicine; Visit Provider Nurse Practitioner Acute Care | DX: I48.0 Paroxysmal atrial fibrillation (principal); G45.9 Transient cerebral ischemic attack, unspecified | CPT/HCPCS: 99232 ==

== ENCOUNTER → 2025-08-03 22:24 | Outpatient (BNV) | payer MEDICARE, OTHER, SELFPAY | PROVIDERS: Admitting Provider Family Medicine; Emergency Provider Emergency Medicine; Visit Provider Psychiatry & Neurology Neurology | DX: R47.01 Aphasia (principal) | CPT/HCPCS: 99222 ==